=== PATIENT | male | born 1975 ===

== ENCOUNTER 2017-08-17 12:19 | Emergency (ER) | payer OTHER ==
[~2017-08-17] VITALS: Ht 185.4 cm; Wt 96.2 kg
[2017-08-17] MEDS ORDERED: Veetids 500500 MG PO (12:49)
[2017-08-17 13:01] LABS: Influenza A Positive (NEGATIVE); Influenza B Negative (NEGATIVE)
== END 2017-08-17 12:57 | disposition home or self-care (01) ==
LOC: ER 12:19
PROVIDERS: Physician Assistant
DX: J02.0 Streptococcal pharyngitis (principal); J10.1 Influenza due to other identified influenza virus with other respiratory manifestations; Z79.2 Long term (current) use of antibiotics; F17.210 Nicotine dependence, cigarettes, uncomplicated
CPT/HCPCS: 87430; 87804; 99283

== ENCOUNTER → 2017-08-18 | Outpatient (CLI) | payer OTHER ==
[~2017-08-18] MED LIST: Veetids 500500 MG PO
[2017-08-21 11:24] LABS: Codeine 74 ng/mL (NOTDET); Hydrocodone Not Detected (NOTDET); Hydromorphone Not Detected (NOTDET); Morphine 206 ng/mL (NOTDET); Norhydrocodone Not Detected (NOTDET); Noroxycodone Not Detected (NOTDET)
== END ==
LOC: LAB 15:08
PROVIDERS: Family Medicine
DX: F11.20 Opioid dependence, uncomplicated (principal)
CPT/HCPCS: G0480